=== PATIENT | male | born 1950 | race African-American/Black ===

== ENCOUNTER → 2018-09-10 08:18 | Outpatient (CLI) | payer MEDICARE, BC ==
[2015-06-26 12:28] VITALS: BMI 26.6
[~2018-09-10 08:18] MED LIST: COMBIGAN OPHT DR5 ML RIGHT EYE; HYDROCHLOROTHIA25 MG PO; HYDROCODON-ACE1 EAC7 PO; NORVASC5 MG PO; XALATAN 0.0052.5 ML EACH EYE
== END | disposition home or self-care (01) ==
LOC: D.US 08:18
DX: G45.9 Transient cerebral ischemic attack, unspecified (principal)

== ENCOUNTER 2018-12-15 05:00 | Day surgery (SDC) | payer MEDICARE, BC ==
[2018-12-14 11:57] LABS: HEMATOCRIT 43.4 % (42.0-54.0); HEMOGLOBIN 14.8 g/dL (13.5-17.5); MCH 29.4 pg (26.0-34.0); MCHC 34.1 g/dL (31.0-37.0); MCV 86.1 fL (80.0-100.0); RBC 5.04 10x6/uL (4.20-6.10); RDW 13.2 % (11.5-14.5); WBC 5.2 10x3/uL (4.8-10.8)
[2018-12-14 12:08] LABS: ANION GAP 10.4 mmol/L (8-16); CARBON DIOXIDE 31.5 mmol/L (21.0-32.0); CREATININE - SERUM 1.2 mg/dL (0.6-1.3); POTASSIUM - SERUM 3.9 mmol/L (3.5-5.1)
[~2018-12-15] VITALS: Ht 182.9 cm; Wt 97.5 kg
[2018-12-15] MEDS ORDERED: BAYER CHEWABLE81 MG (06:09)
[2018-12-15] MEDS ORDERED: SULFAMETHOXAZOL1 TA3 (06:09)
[2018-12-15 06:13] VITALS: BP 118/83; Ht 182.9 cm; Wt 97.5 kg
--- NOTE | 2018-12-15 15:25 | OP ---
PATIENT NAME: AKUA MCKEON MEDICAL RECORD: [id number] :46 LOCATION:[facility] ADMISSION DATE: SURGEON: YONG LAMBERT MD DATE OF OPERATION: 12/15/2018 SURGEON: Yong Lambert MD ANESTHESIA: TIVA by Paige Abdi CRNA. DIAGNOSIS: Elevated PSA of 6.9 on 11/09/2018 and obstructive prostate. PROCEDURE: Cystoscopy, transrectal ultrasound and prostate biopsy. FINDINGS: On cystoscopy, bilateral lateral lobe hyperplasia with obstruction. Minimal median lobe. There are no bladder tumors seen. He has single ureteral orifices bilaterally. Moderately trabeculated bladder. On transrectal ultrasound, he has a 60.1 gram prostate, with intraprostatic hypoechoic areas near the left apex. SPECIMENS: Prostate biopsy cores. BLOOD LOSS: Minimal. CLINICAL HISTORY: This is a 68-year-old black male who is found to have an elevated PSA of 6.9. Back in 04/24/2017, his PSA was 5.1. There is a positive family history of prostate cancer with his oldest brother having prostate cancer. He has some mild obstructive voiding symptoms including a slow urinary flow and the feeling that he is not always emptying his bladder fully. 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 He has no Agent Castro exposure history. He comes today to have the prostate biopsied. He is not allergic to any medications. He was given Ancef partition notcher to the OR. DESCRIPTION OF PROCEDURE: We started with cystoscopy. He was placed in lithotomy position and he was prepped and draped. A 17-Urdu cystoscope was introduced. There are no penile urethral strictures. The prostate was obstructive in the lateral lobes being quite large. They are also pretty vascular. No bladder tumors were seen. We then emptied the bladder through the scope and the scope was removed. The transrectal ultrasound probe was introduced. We obtained prostate size measurements. He has a rather spherical prostate of 60 grams size. There are hypoechoic areas internally in the peripheral zone. I obtained sextant biopsies with at least 3 cores from each sextant. I tried to target the hypoechoic areas also. Once all specimens were obtained, the procedure was terminated. I will see the patient in followup either late this week or early next week to review the pathology with him. TRANSINT:[id number] Voice Confirmation ID: [id number] DOCUMENT ID: [id number] OPERATIVE REPORT [id number] AKUA MCKEON, YONG Lemus MD at 1525 CC: [id number] DICTATION DATE: 12/15/18813 [employer] DEVELOPER: 12/15/18 1317 [facility] 12/15/18 [place] [id number] [place] [id number]
== END 2018-12-15 09:30 | disposition home or self-care (01) ==
LOC: D.OPS 05:00 → D.PAN 07:30 → D.OPS 07:30 → D.PAN 07:45 → D.OPS 09:30
PROVIDERS: Anesthesiology; ATTEND Urology
DX: N40.1 Benign prostatic hyperplasia with lower urinary tract symptoms (principal); N13.8 Other obstructive and reflux uropathy; N32.89 Other specified disorders of bladder; Z01.812 Encounter for preprocedural laboratory examination

== ENCOUNTER → 2019-09-06 07:44 | Outpatient (CLI) | payer MEDICARE, BC ==
[2018-12-15 06:13] VITALS: BMI 29.2
[~2019-09-06 07:44] MED LIST changes: +BAYER CHEWABLE81 MG; +SULFAMETHOXAZOL1 TA3
== END | disposition home or self-care (01) ==
LOC: D.RAD 07:44
PROVIDERS: ATTEND Family Medicine
DX: R05 Cough (principal)